=== PATIENT | female | born 1975 | race Two or more races ===

== ENCOUNTER 2020-01-22 05:44 | Day surgery (SDC) | payer OTHER | END 2020-01-22 10:40 | disposition home or self-care (01) | LOC: AMB-ENDOS 05:44 | PROVIDERS: ATTEND Surgery | DX: D13.1 Benign neoplasm of stomach (principal); K44.9 Diaphragmatic hernia without obstruction or gangrene; Z20.828 Contact with and (suspected) exposure to other viral communicable diseases ==

== ENCOUNTER 2023-06-02 22:53 | Emergency (ER) | payer OTHER ==
[~2023-06-02] VITALS: Ht 157.5 cm; Wt 86.2 kg
[2023-06-02] MEDS ORDERED: SYNTHROID125 MCG PO (23:31)
== END 2023-06-03 | disposition left against medical advice (07) ==
LOC: ER 22:54
DX: Z53.21 Procedure and treatment not carried out due to patient leaving prior to being seen by health care provider (principal)